=== PATIENT | female | born 1940 | race Caucasian/White ===

== ENCOUNTER 2016-11-14 16:02 | Emergency (ER) | payer MEDICARE, OTHER ==
--- NOTE | 2016-11-14 18:45 | DIAGNOSTIC IMAGING REPORT ---
PROCEDURE: CT ABDOMEN/PELVIS W/O CONTRAST INDICATION: ABDOMINAL PAIN, initial encounter TECHNIQUE: Noncontrast axial images were obtained of the entire abdomen and pelvis with sagittal and coronal reformations. COMPARISON: None. FINDINGS: ABDOMEN: Lung base are clear. Heart size is normal. 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 8 mm hepatic cyst. Gallstones present. 1.4 cm left adrenal mass measuring -9 HU consistent with adenoma. Pancreas and spleen are normal. 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 There is a linear calcification through the lumen of the distal aorta which may represent calcified thrombus versus dissection. Mild descending colon diverticulosis. 2 cm fat containing supraumbilical ventral hernia just right of midline. PELVIS: Short segment inflammatory changes of the proximal sigmoid colon with several diverticula consistent with diverticulitis. No evidence of an abscess or free air. Normal appendix. Uterine atrophy. Normal bladder. Mild to moderate degenerative changes of the spine. IMPRESSION: 1. Proximal sigmoid colon diverticulitis without abscess or free air 2. 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 3.1 cm infrarenal abdominal aortic aneurysm 4. Cholelithiasis 5. Left renal atrophy/hypoplasia 6. Results discussed Dr. Leal All CT scans at this facility use dose modulation, iterative reconstruction, and/or weight-based dosing when appropriate to reduce radiation dose to as low as reasonably achievable.
--- NOTE | 2016-11-14 20:38 | ED NURSING NOTES ---
Clinical Report - Nurses [facility] [address] [place] [address] 11/14/2016 16:05 Patient: AMIRA LINDER TRIAGE Acuity: LEVEL 3. Chief Complaint: (RLQ pain). Alert. No acute distress. ODIN COMA SCORE: [place] Coma Scale: 14- eyes open spontaneously (4); best verbal response- disoriented (4); best motor response- obeys commands (6). --16:25 Margarita Wade R.N. 16:18 11/14/16. BP: 181/78. HR: 67. RR: 16. O2 saturation: 98% on room air. Temp: 98.4 F (oral). Pain level now: 07/20. --16:25 Margarita Wade R.N. Weight: 65.3 kg stated. Height/Length: 64 inches Per Patient. BMI: 24.7. --16:29 Lacie Christianson R.N. Medications Metoprolol Succinate ER Oral. --16:24 Margarita Wade R.N. AmLODIPine Besylate Oral. --16:26 Lacie Christianson R.N. Aspirin Oral. --16:26 Lacie Christianson R.N. Allergies CONTRAST DYE. --16:26 Lacie Christianson R.N. Medication/allergy information source: the patient. --16:25 Margarita Wade R.N. Medication/allergy information source: the patient. --16:30 Lacie Christianson R.N. History Arrived by private vehicle, and accompanied by family. Onset. (2 days ago). ( Pt reports urinary frequency and RLQ pain..). 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 NUTRITIONAL RISK ASSESSMENT: The nutritional risk assessment revealed no deficiencies. FUNCTIONAL ASSESSMENT: Functional assessment: no impairments noted. LEARNING NEEDS ASSESSMENT: The learning needs assessment revealed no barriers. FALL RISK ASSESSMENT: Fall risk assessment completed. Risk factors identified include patient age greater than 65 years. Fall interventions initiated. Side rails up x1. Brakes on Bed in low position. Call light in reach of patient. SKIN INTEGRITY ASSESSMENT: Skin integrity risk assessment completed. No skin integrity risk identified. --16:25 Margarita Wade R.N. SOCIAL HX: Former smoker, end date 1995. Occasional alcohol use. History of heavy drug use: marijuana. --16:30 Lacie Christianson R.N. PROBLEMS: Lung Cancer. Aortic Aneurysm. Hypertension. --16:28 Lacie Christianson R.N. ADDITIONAL SURGERIES: Aortic surgery. Lung Surgery. --16:28 Lacie Christianson R.N. Interventions ID band on patient. To treatment room. --16:25 Margarita Wade R.N. PHYSICAL ASSESSMENT 16:30 11/14/16. Ambulatory to room. GENERAL / NEURO / PSYCH: Alert. Appears in no acute distress. RESPIRATORY: Respirations not labored. CVS: Capillary refill less than 2 seconds. GI / : Abdomen soft and nontender. EXTREMITIES: Sensation intact in extremities. BACK: ROM of neck and back within normal limits. --16:30 Lacie Christianson R.N. NURSING PROGRESS NOTES Patient gowned. Reassurance given. Two patient identifiers checked. Call light placed in reach. Side rails up x 1. Bed placed in lowest position. Brakes of bed on. Patient ready for evaluation- chart flagged and ED physician and BOTTOM PRESSER notified. --16:18 Margarita Wade R.N. late entry - 16:20. Checked patient name and birthdate: patient confirmed. Instructions provided to collect clean catch urine and patient verbalized understanding. Clean catch urine collected with return of yellow-colored clear urine; sample sent to lab for urinalysis. Specimen labeled in the presence of the patient. --17:23 Lacie Christianson R.N. 17:37 11/14/2016 Site #1 started via IV in the left antecubital space with an 20g angiocath, with aseptic technique and good blood return; one attempt. Blood drawn: rainbow set. Labeled in the presence of the patient and sent to the lab. --17:47 Lacie Christianson R.N. 17:47 11/14/2016 Started IV Fluids IV NS (Saline); at 250 mL/hr over 4 hour(s) via site #1 via IV pump. Allergies verified and confirmed 5 rights. IV patency established. IV site checked: no pain, redness, or swelling. IV flushed thoroughly pre- and post-medication administration. --17:48 Lacie Christianson R.N. 17:48 11/14/2016 Dilaudid (HYDROmorphone HCl PF) IVP 0.5 mg given over 1 minute(s) via site #1. Allergies verified, confirmed 5 rights and sedative warning given to the patient. IV patency established. IV site checked: no pain, redness, or swelling. IV flushed thoroughly pre- and post-medication administration. IVP given by RN. --17:48 Lacie Christianson R.N. 17:48 11/14/2016 Zofran (Ondansetron HCl) IVP 4 mg given over 1 minute(s) via site #1. Allergies verified and confirmed 5 rights. IV patency established. IV site checked: no pain, redness, or swelling. IV flushed thoroughly pre- and post-medication administration. IVP given by RN. --17:48 Lacie Christianson R.N. 18:15 11/14/2016 Dilaudid IVP Response: no adverse reaction pain is gone now. Symptoms have improved the patient feels better. --18:15 Lacie Christianson R.N. 18:15 11/14/2016 Zofran IVP Response: no adverse reaction symptoms have improved the patient feels better. --18:15 Lacie Christianson R.N. 18:16 11/14/16. Patient transported to [place] by stretcher with tech. --18:16 Lacie Christianson R.N. 18:26 11/14/16. Patient returned from CT by stretcher with tech. --18:26 Lacie Christianson R.N. 19:05 11/14/16. Care transferred and report given (SÁNCHEZ Quezada). --19:05 Lacie Christianson R.N. 19:30 11/14/2016 Started 500 mg of Levaquin (Levofloxacin) IVPB in bag #1 100 mL; at 100 mL/hr over 1 hour(s) via site #1; Allergies verified and confirmed 5 rights. IV patency established. IV site checked: no pain, redness, or swelling. IV flushed thoroughly pre- and post-medication administration. --19:30 Damien Mike R.N. 19:31 11/14/2016 Started 500 mg of Flagyl (MetroNIDAZOLE in NaCl) IVPB in bag #1 100 mL; at 100 mL/hr over 1 hour(s) via site #1 via IV pump. Allergies verified and confirmed 5 rights. IV patency established. IV site checked: no pain, redness, or swelling. IV flushed thoroughly pre- and post-medication administration. --19:31 Damien Mike R.N. 20:34 11/14/2016 Zofran (Ondansetron HCl) IVP 4 mg given. via site #1. Allergies verified and confirmed 5 rights. IV patency established. IV site checked: no pain, redness, or swelling. IV flushed thoroughly pre- and post-medication administration. --20:34 Damien Mike R.N. 20:35 11/14/2016 Site #1 removed upon discharge. Pressure dressing applied. --20:35 Damien Mike R.N. 20:37 11/14/2016 IV Fluids IV NS Discontinued: bag #1 completed upon discharge. Total amount infused: 1000 mL. IV patency established. IV site checked: no pain, redness, or swelling. IV flushed thoroughly. --20:37 Damien Mike R.N. DISPOSITION / DISCHARGE Departure time: 2032. Condition at departure: improved. No learning barriers present. Discharge instructions provided and reviewed with the patient. Reviewed warnings. Reviewed medication(s). Treatments reviewed. Reviewed diet. Activity restrictions reviewed. Patient verbalized understanding. Written instructions provided in Thai. The patient was discharged by the physician. She was discharged home and unaccompanied at time of discharge. She left the Emergency Department ambulatory and via private vehicle. Patient driving. FALL RISK ASSESSMENT: Fall risk assessment completed. No fall risk identified. --20:36 Damien Mike R.N. 20:35 11/14/16. BP: 168/88. HR: 68. RR: 18. O2 saturation: 98%. Temp: 98 F. Pain level now 3/10. --20:36 Damien Mike R.N. Locked/Released at 11/14/2016 20:37 by Damien Mike R.N.
--- NOTE | 2016-11-14 20:38 | ED ORDER SUMMARY ---
..... Patient: AMIRA LINDER OrderSheet [facility] VisitID: [id number] [place] [address] 76y, F Registration Date/Time: 11/14/2016 ORDER SHEET Weight: 65.3 kg (stated) Allergies: CONTRAST DYE GENERAL ORDERS: UA-Culture if indicated Urgent (17:14 11/14/2016 MWinterer R.N. per protocol) (Ack 17:21 TBergley) (17:22 MWinterer R.N.) CT Abd/Pel w Cont (No) (pending) Urgent (17:30 11/14/2016 Maddie STATON) (Cancelled: [id number] Maddie STATON) Cardiac Panel Stat (17:31 11/14/2016 Maddie STATON) (Ack 17:35 TBergley) (17:36 MWinterer R.N.) Amylase Urgent (17:31 11/14/2016 Maddie STATON) (Ack 17:35 TBergley) (17:36 MWinterer R.N.) Lipase Urgent (17:31 11/14/2016 Maddie STATON) (Ack 17:35 TBergley) (17:36 MWinterer R.N.) CT Abd/Pel wo Cont Urgent (17:33 11/14/2016 Maddie STATON) (Ack 17:35 TBergley) (18:26 MWinterer R.N.) MEDICATION ORDERS: IV FLUIDS: IV NS : initial bolus none -, then 250 mL/hr for 4h (NOW); Routine (17:32 11/14/2016 Maddie STATON) (Ack 17:36 MWinterer R.N.) (17:48 MWinterer R.N.) Dilaudid IV 0.5 mg (NOW) (17:32 11/14/2016 Maddie STATON) (Ack 17:36 MWinterer R.N.) (17:48 MWinterer R.N.) Zofran IV 4 mg (NOW) (17:32 11/14/2016 Maddie STATON) (Ack 17:36 MWinterer R.N.) (17:48 MWinterer R.N.) Flagyl IV 500 mg/100mL (NOW) (18:54 11/14/2016 Maddie STATON) (19:31 Sidney Brown) Levaquin IV 500 mg/100mL (NOW) (18:54 11/14/2016 Maddie STATON) (19:30 Sidney Brown) Zofran IV 4 mg (just prior to discharge home) (19:37 11/14/2016 Maddie STATON) (20:34 Sidney Brown) ORDER SHEET NOTES: [Electronically signed by Damien Mike R.N. (20:37 11/14/2016)] [Electronically locked/signed by Damien Mike R.N. (:37 11/14/2016)]
--- NOTE | 2016-11-14 20:38 | ED CLINICAL REPORT ---
Clinical Report - Physicians/Mid Levels [facility] [address] [place] [address] 11/14/2016 16:05 Patient: AMIRA LINDER Time Seen: 16:35 Nov 14 2016. Arrived- By private vehicle. Historian- patient. CPT: ER phys charges level 4 (#[id number]). HISTORY OF PRESENT ILLNESS Chief Complaint: ABDOMINAL PAIN. At its maximum, severity described as moderate. When seen in the E.D., severity described as moderate. Modifying factors- worsened by movement. Relieved by rest. It is described as "pain", sharp and well localized and it is described as located in the left lower quadrant. 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 The patient has had nausea and loss of appetite. No vomiting or diarrhea. No recent travel. Similar symptoms previously: Once, milder. Diagnosis: unknown. Recent medical care: Not recently seen/assessed. REVIEW OF SYSTEMS The patient has had constipation. No black stools, hematemesis, difficulty with urination, pain with urination or urinary frequency. No fever, headache, sore throat, blurred vision or chest pain. No difficulty breathing, cough, joint pain, skin rash or chills. No back pain. All systems otherwise negative, except as recorded above. PAST HISTORY Lung Cancer. Aortic Aneurysm. Hypertension. Aortic surgery. Lung Surgery. Medications: Aspirin Oral. AmLODIPine Besylate Oral. Metoprolol Succinate ER Oral. Allergies: CONTRAST DYE. SOCIAL HISTORY Former smoker. Alcohol use. History of drug use: marijuana. ADDITIONAL NOTES The nursing notes have been reviewed. PHYSICAL EXAM Vital Signs: 11/14/2016 16:18 BP: 181/78. HR: 67. RR: 16. O2 saturation: 98%. Temp: 98.4 F. Pain level now: 10/10. Appearance: Alert. Appears to be in pain. Patient in moderate distress. Eyes: Pupils equal, round and reactive to light. Eyes normal inspection. ENT: Ears normal. Nose normal. Pharynx normal. Neck: Normal inspection. Neck supple. CVS: Normal heart rate and rhythm. Heart sounds normal. Pulses normal. Respiratory: No respiratory distress. Breath sounds normal. Chest nontender. Abdomen: Moderate tenderness in the left side of the abdomen and left lower quadrant with guarding present. Abnormal bowel sounds: diminished. No mass. Back: Normal inspection. Skin: Skin warm. Normal skin color. No rash. Extremities: Extremities exhibit normal ROM. No lower extremity edema. Neuro: Oriented X 3. No motor deficit. No sensory deficit. Reflexes normal. LABS, X-RAYS, AND EKG Abdominal CT: There is evidence of diverticulitis (Sigmoid). No inflammatory phlegmon, focal abscess or perforation with free air. Laboratory Tests: UA-Culture if indicated: (JAYDON: 11/14/2016 16:10) ( Mscvd 11/14/2016 17:35) Final results Test Result Flag Units (Reference) URINE COLOR YELLOW URINE APPEARANCE CLEAR URINE GLUCOSE NEGATIVE (NEGATIVE) URINE BILIRUBIN NEGATIVE (NEGATIVE) URINE KETONE NEGATIVE (NEGATIVE) URINE SPECIFIC GRAVITY 1.010 (1.010-1.030) URINE PH 7.0 (5.0-8.0) URINE PROTEIN NEGATIVE (NEGATIVE) URINE UROBILINOGEN 0.2 EU/dL (0.2-1.0) URINE NITRITE NEGATIVE (NEGATIVE) URINE BLOOD NEGATIVE (NEGATIVE) URINE LEUK ESTERASE TRACE (NEGATIVE) URINE RBC 0-1 rbc/hpf (0-1) URINE WBC 1-3 wbc/hpf (0-1) URINE EPITHELIAL CELLS 1-3 EPI/hpf (0-5) URINE BACTERIA NONE SEEN (NONE SEEN) URINE COMMENT CULTURE INDICATED URINE CULTURES ARE SET-UP BASED ON THE FOLLOWING CRITERIA:POSITIVE NITRITEPOSITIVE LEUKOCYTE ESTERASEGREATER THAN 10 WHITE BLOOD CELLSMODERATE (2+) OR GREATER BACTERIA CBC w Diff: (JAYDON: 11/14/2016 17:30) ( [facility] [place] 17:55) Final results Test Result Flag Units (Reference) WHITE BLOOD COUNT 11.3 K/uL (4.5-11.5) RED BLOOD COUNT 4.33 M/uL (4.00-5.20) HEMOGLOBIN 13.1 gm/dL (12.0-16.0) HEMATOCRIT 39.0 % (36.0-46.0) MEAN CELL VOLUME 90 fL (80-100) MEAN CORPUSCULAR HGB 30 pg (26-34) MEAN CORPUSCULAR HGB CONC 34 g/dL (31-37) RED CELL DISTRIBUTION WIDTH 13.5 % (11.6-14.8) PLATELET COUNT 254 K/uL (150-400) NEUTROPHIL % 83.7 H % (50-75) LYMPH % 9.4 L % (25-40) MONO % 6.5 % (3-14) EOSINOPHIL % 0.3 % (0-4) BASOPHIL % 0.1 % (0-2) CHEM 13 PANEL: (JAYDON: 11/14/2016 17:30) ( MsgRcvd 11/14/2016 17:59) Final results Test Result Flag Units (Reference) GLUCOSE 113 H mg/dL (70-110) BUN 15 mg/dL (7-18) CREATININE 1.2 mg/dL (0.6-1.3) Estimated GFR 46.30 mL/min Estimated GFR- 56.11 mL/min Note: Persistent reduction over 3 months in eGFR<60 mL/min/1.73 m2 defines CKD. Patients with eGFR values>=60 mL/min/1.73 m2 may also have CKD if evidence ofpersistent proteinuria. Additional information may be foundat www.kidney.org. SODIUM 140 mmol/L (136-145) POTASSIUM 3.7 mmol/L (3.5-5.1) CHLORIDE 102 mmol/L (98-107) CARBON DIOXIDE 26 mmol/L (21-32) CALCIUM 9.1 mg/dL (8.5-10.1) TOTAL PROTEIN 7.0 g/dL (6.4-8.2) ALBUMIN 3.8 g/dL (3.3-5.0) BILIRUBIN, TOTAL 0.6 mg/dL (0.0-1.0) ALKALINE PHOSPHATASE 72 U/L (46-116) AST (SGOT) 19 U/L (15-37) ALT (SGPT) 33 U/L (12-78) CPK 67 U/L (24-260) MAGNESIUM 2.1 mg/dL (1.8-2.4) LIPASE 149 U/L (73-393) AMYLASE 62 U/L (25-115) TROPONIN I <0.05 L ng/mL (0.00-1.5) TROPONIN REFERENCE RANGE:<0.1 NEGATIVE0.1-1.5 INDETERMINANT>1.5 POSITIVE Culture, Urine: (JAYDON: 11/14/2016 16:10) ( MsgRcvd 11/16/2016 11:49) Final results Test Result Flag Units (Reference) CULTURE, URINE DATE: 11/16/16 NO SIGNIFICANT ISOLATION: NO SIGNIFICANT ISOLATION PRELIM REPORT: FINAL REPORT . PROGRESS AND PROCEDURES Course of Care: IV NS Dilaudid 0.5 mg IV times 2 Zofran 4 mg IV times 2. Patient is stable. Symptoms better. Levaquin 500 mg IV Flagyl 500 mg IV. Patient/family counseled. Disposition: Discharged. Condition: stable. CLINICAL IMPRESSION Acute diverticulitis of the colon. No perforation, bleeding, abscess, peritonitis or obstruction. INSTRUCTIONS Take clear liquids only (frequent sips) for the next 24 hours until better. Advance diet as tolerated. Warnings: Further evaluation is necessary. SEDATIVE MEDICATION: You were given sedative medication during your visit. Do not drive or operate dangerous machinery. GENERAL WARNINGS: Return or contact your physician immediately if your condition worsens or changes unexpectedly, if not improving as expected, or if other problems arise. Your Current Medications: CONTINUE TAKING THE FOLLOWING MEDICATIONS: AmLODIPine Besylate Oral. Aspirin Oral. Metoprolol Succinate ER Oral. Prescription Medications: Flagyl 500 mg: Take 1 tablet orally every 12 hours for 10 days. No refill. Substitution is permissible Levaquin 500 mg: take 1 tab orally every day for 10 days. No refills. Oxycodone/APAP 5 mg/325 mg: take 1 tablet orally every 4 hours as needed for pain. Dispense twenty (20). No refill. Follow-up: Follow up with your doctor in three days. Call for the next available appointment. Understanding of the discharge instructions verbalized by patient and family. (Electronically signed by Harshal Leal MD 11/17/2016 23:43)
--- NOTE | 2016-11-14 20:38 | ED ORDER SUMMARY ---
..... Patient: AMIRA LNIDER OrderSheet [facility] VisitID: [id number] [place] [address] 76y, F Registration Date/Time: 11/14/2016 ORDER SHEET Weight: 65.3 kg (stated) Allergies: CONTRAST DYE GENERAL ORDERS: UA-Culture if indicated Urgent (17:14 11/14/2016 MWinterer R.N. per protocol) (Ack 17:21 TBergley) (17:22 MWinterer R.N.) CT Abd/Pel w Cont (No) (pending) Urgent (17:30 11/14/2016 Maddie STATON) (Cancelled: [id number] Maddie STATON) Cardiac Panel Stat (17:31 11/14/2016 Maddie STATON) (Ack 17:35 TBergley) (17:36 MWinterer R.N.) Amylase Urgent (17:31 11/14/2016 Maddie STATON) (Ack 17:35 TBergley) (17:36 MWinterer R.N.) Lipase Urgent (17:31 11/14/2016 Maddie STATON) (Ack 17:35 TBergley) (17:36 MWinterer R.N.) CT Abd/Pel wo Cont Urgent (17:33 11/14/2016 Maddie STATON) (Ack 17:35 TBergley) (18:26 MWinterer R.N.) MEDICATION ORDERS: IV FLUIDS: IV NS : initial bolus none -, then 250 mL/hr for 4h (NOW); Routine (17:32 11/14/2016 Maddie STATON) (Ack 17:36 MWinterer R.N.) (17:48 MWinterer R.N.) Dilaudid IV 0.5 mg (NOW) (17:32 11/14/2016 Maddie STATON) (Ack 17:36 MWinterer R.N.) (17:48 MWinterer R.N.) Zofran IV 4 mg (NOW) (17:32 11/14/2016 Maddie STATON) (Ack 17:36 MWinterer R.N.) (17:48 MWinterer R.N.) Flagyl IV 500 mg/100mL (NOW) (18:54 11/14/2016 Maddie STATON) (19:31 Sidney Brown) Levaquin IV 500 mg/100mL (NOW) (18:54 11/14/2016 Maddie STATON) (19:30 Sidney Brown) Zofran IV 4 mg (just prior to discharge home) (19:37 11/14/2016 Maddie STATON) (20:34 Sidney Brown) ORDER SHEET NOTES: [Electronically signed by Damien Mike R.N. (20:37 11/14/2016)] [Electronically locked/signed by Damien Mike R.N. (:37 11/14/2016)]
--- NOTE | 2016-11-14 20:38 | ED NURSING NOTES ---
Clinical Report - Nurses [facility] [address] [place] [address] 11/14/2016 16:05 Patient: MAIRA LINDER TRIAGE Acuity: LEVEL 3. Chief Complaint: (RLQ pain). Alert. No acute distress. ODIN COMA SCORE: Toney Coma Scale: 14- eyes open spontaneously (4); best verbal response- disoriented (4); best motor response- obeys commands (6). --16:25 Margarita Wade R.N. 16:18 11/14/16. BP: 181/78. HR: 67. RR: 16. O2 saturation: 98% on room air. Temp: 98.4 F (oral). Pain level now: 07/20. --16:25 Margarita Wade R.N. Weight: 65.3 kg stated. Height/Length: 64 inches Per Patient. BMI: 24.7. --16:29 Lacie Christianson R.N. Medications Metoprolol Succinate ER Oral. --16:24 Margarita Wade R.N. AmLODIPine Besylate Oral. --16:26 Lacie Christianson R.N. Aspirin Oral. --16:26 Lacie Christianson R.N. Allergies CONTRAST DYE. --16:26 Lacie Christianson R.N. Medication/allergy information source: the patient. --16:25 Margarita Wade R.N. Medication/allergy information source: the patient. --16:30 Lacie Christianson R.N. History Arrived by private vehicle, and accompanied by family. Onset. (2 days ago). ( Pt reports urinary frequency and RLQ pain..). Treatment [employer]: Recently seen in a clinic; seen for similar symptoms. NUTRITIONAL RISK ASSESSMENT: The nutritional risk assessment revealed no deficiencies. FUNCTIONAL ASSESSMENT: Functional assessment: no impairments noted. LEARNING NEEDS ASSESSMENT: The learning needs assessment revealed no barriers. FALL RISK ASSESSMENT: Fall risk assessment completed. Risk factors identified include patient age greater than 65 years. Fall interventions initiated. Side rails up x1. Brakes on Bed in low position. Call light in reach of patient. SKIN INTEGRITY ASSESSMENT: Skin integrity risk assessment completed. No skin integrity risk identified. --16:25 Margarita Wade R.N. SOCIAL HX: Former smoker, end date 1995. Occasional alcohol use. History of heavy drug use: marijuana. --16:30 Lacie Christianson R.N. PROBLEMS: Lung Cancer. Aortic Aneurysm. Hypertension. --16:28 Lacie Christianson R.N. ADDITIONAL SURGERIES: Aortic surgery. Lung Surgery. --16:28 Lacie Christianson R.N. Interventions ID band on patient. To treatment room. --16:25 Margarita Wade R.N. PHYSICAL ASSESSMENT 16:30 11/14/16. Ambulatory to room. GENERAL / NEURO / PSYCH: Alert. Appears in no acute distress. RESPIRATORY: Respirations not labored. CVS: Capillary refill less than 2 seconds. GI / : Abdomen soft and nontender. EXTREMITIES: Sensation intact in extremities. BACK: ROM of neck and back within normal limits. --16:30 Lacie Christianson R.N. NURSING PROGRESS NOTES Patient gowned. Reassurance given. Two patient identifiers checked. Call light placed in reach. Side rails up x 1. Bed placed in lowest position. Brakes of bed on. Patient ready for evaluation- chart flagged and ED physician and LAB ASST notified. --16:18 Margarita Wade R.N. late entry - 16:20. Checked patient name and birthdate: patient confirmed. Instructions provided to collect clean catch urine and patient verbalized understanding. Clean catch urine collected with return of yellow-colored clear urine; sample sent to lab for urinalysis. Specimen labeled in the presence of the patient. --17:23 Lacie Christianson R.N. 17:37 11/14/2016 Site #1 started via IV in the left antecubital space with an 20g angiocath, with aseptic technique and good blood return; one attempt. Blood drawn: rainbow set. Labeled in the presence of the patient and sent to the lab. --17:47 Lacie Christianson R.N. 17:47 11/14/2016 Started IV Fluids IV NS (Saline); at 250 mL/hr over 4 hour(s) via site #1 via IV pump. Allergies verified and confirmed 5 rights. IV patency established. IV site checked: no pain, redness, or swelling. IV flushed thoroughly pre- and post-medication administration. --17:48 Lacie Christianson R.N. 17:48 11/14/2016 Dilaudid (HYDROmorphone HCl PF) IVP 0.5 mg given over 1 minute(s) via site #1. Allergies verified, confirmed 5 rights and sedative warning given to the patient. IV patency established. IV site checked: no pain, redness, or swelling. IV flushed thoroughly pre- and post-medication administration. IVP given by RN. --17:48 Lacie Christianson R.N. 17:48 11/14/2016 Zofran (Ondansetron HCl) IVP 4 mg given over 1 minute(s) via site #1. Allergies verified and confirmed 5 rights. IV patency established. IV site checked: no pain, redness, or swelling. IV flushed thoroughly pre- and post-medication administration. IVP given by RN. --17:48 Lacie Christianson R.N. 18:15 11/14/2016 Dilaudid IVP Response: no adverse reaction pain is gone now. Symptoms have improved the patient feels better. --18:15 Lacie Christianson R.N. 18:15 11/14/2016 Zofran IVP Response: no adverse reaction symptoms have improved the patient feels better. --18:15 Lacie Christianson R.N. 18:16 11/14/16. Patient transported to [place] by stretcher with tech. --18:16 Lacie Christianson R.N. 18:26 11/14/16. Patient returned from CT by stretcher with tech. --18:26 Lacie Christianson R.N. 19:05 11/14/16. Care transferred and report given (SÁNCHEZ Quezada). --19:05 Lacie Christianson R.N. 19:30 11/14/2016 Started 500 mg of Levaquin (Levofloxacin) IVPB in bag #1 100 mL; at 100 mL/hr over 1 hour(s) via site #1; Allergies verified and confirmed 5 rights. IV patency established. IV site checked: no pain, redness, or swelling. IV flushed thoroughly pre- and post-medication administration. --19:30 Damien Mike R.N. 19:31 11/14/2016 Started 500 mg of Flagyl (MetroNIDAZOLE in NaCl) IVPB in bag #1 100 mL; at 100 mL/hr over 1 hour(s) via site #1 via IV pump. Allergies verified and confirmed 5 rights. IV patency established. IV site checked: no pain, redness, or swelling. IV flushed thoroughly pre- and post-medication administration. --19:31 Damien Mike R.N. 20:34 11/14/2016 Zofran (Ondansetron HCl) IVP 4 mg given. via site #1. Allergies verified and confirmed 5 rights. IV patency established. IV site checked: no pain, redness, or swelling. IV flushed thoroughly pre- and post-medication administration. --20:34 Damien Mike R.N. 20:35 11/14/2016 Site #1 removed upon discharge. Pressure dressing applied. --20:35 Damien Mike R.N. 20:37 11/14/2016 IV Fluids IV NS Discontinued: bag #1 completed upon discharge. Total amount infused: 1000 mL. IV patency established. IV site checked: no pain, redness, or swelling. IV flushed thoroughly. --20:37 Damien Mike R.N. DISPOSITION / DISCHARGE Departure time: 2032. Condition at departure: improved. No learning barriers present. Discharge instructions provided and reviewed with the patient. Reviewed warnings. Reviewed medication(s). Treatments reviewed. Reviewed diet. Activity restrictions reviewed. Patient verbalized understanding. Written instructions provided in Latvian. The patient was discharged by the physician. She was discharged home and unaccompanied at time of discharge. She left the Emergency Department ambulatory and via private vehicle. Patient driving. FALL RISK ASSESSMENT: Fall risk assessment completed. No fall risk identified. --20:36 Damien Mike R.N. 20:35 11/14/16. BP: 168/88. HR: 68. RR: 18. O2 saturation: 98%. Temp: 98 F. Pain level now 3/10. --20:36 Damien Mike R.N. Locked/Released at 11/14/2016 20:37 by Damien Mike R.N.
--- NOTE | 2016-11-17 23:43 | ED MED RECONCILIATION SUMMARY ---
Patient: AMIRA LINDER Medication Reconciliation Report [facility] VisitID: [id number] [address] [place] [address] 76y, F Registration Date/Time: 11/14/2016 Weight: 65.3 kg Height/Length: 64 in. BMI: 24.7 ALLERGIES: CONTRAST DYE The patient's Home Medications are listed below: CONTINUE TAKING THE FOLLOWING MEDICATIONS: AmLODIPine Besylate Oral Aspirin Oral Metoprolol Succinate ER Oral The source(s) of the original Home Medication information: patient The following Medications were given to the patient in the Emergency Department: IV NS IV Fluids bolus 0, then 250 mL/hr, administered: 11/14/2016 5:47:00 PM Dilaudid [IVP] IVP 0.5 mg, administered: 11/14/2016 5:48:00 PM Zofran [IVP] IVP 4 mg, administered: 11/14/2016 5:48:00 PM Levaquin [IVPB] IVPB bolus 0, then 500 mg 100 mL/hr, administered: 11/14/2016 7:30:00 PM Flagyl [IVPB] IVPB bolus 0, then 500 mg 100 mL/hr, administered: 11/14/2016 7:31:00 PM Zofran [IVP] IVP 4 mg, administered: 11/14/2016 8:34:00 PM The following Medications were prescribed to the patient: Flagyl 500 mg: Take 1 tablet orally every 12 hours for 10 days. No refill. Substitution is permissible -- Harshal Leal MD Levaquin 500 mg: take 1 tab orally every day for 10 days. No refills. -- Harshal Leal MD Oxycodone/APAP 5 mg/325 mg: take 1 tablet orally every 4 hours as needed for pain. Dispense twenty (20). No refill. -- Harshal Leal MD
--- NOTE | 2016-11-17 23:43 | ED MAR SUMMARY ---
..... Medication Administration Record [facility] [address] [place] [address] Patient: AMIRA LINDER Visit ID: [id number] 76y, F Weight: 65.3 kg Height/Length: 64 in BMI: 24.7 ALLERGIES: CONTRAST DYE Start 17:47 11/14/2016 Lacie Christianson R.N., Stop 20:37 11/14/2016 Damien Mike R.N. Medication Administered: IV NS (SALINE), Dose: IV Fluids over 4 hour(s), Rate: 250 mL/hr, Site: #1 left AC. Medication Ordered: IV NS : initial bolus none -, then 250 mL/hr for 4h (NOW); Routine. Given 17:48 11/14/2016 Lacie Christianson R.N. Medication Administered: DILAUDID [IVP] (HYDROMORPHONE HCL PF), Dose: 0.5 mg IVP over 1 minute(s), Site: #1 left AC. Medication Ordered: Dilaudid IV 0.5 mg (NOW). Given 17:48 11/14/2016 Lacie Christianson R.N. Medication Administered: ZOFRAN [IVP] (ONDANSETRON HCL), Dose: 4 mg IVP over 1 minute(s), Site: #1 left AC. Medication Ordered: Zofran IV 4 mg (NOW). Start 19:30 11/14/2016 Damien Mike R.N. Medication Administered: LEVAQUIN [IVPB] (LEVOFLOXACIN), Dose: 500 mg IVPB over 1 hour(s), Rate: 100 mL/hr, Dispensed: 100 mL bag, Site: #1 left AC. Medication Ordered: Levaquin IV 500 mg/100mL (NOW). Start 19:31 11/14/2016 Damien Mike R.N. Medication Administered: FLAGYL [IVPB] (METRONIDAZOLE IN NACL), Dose: 500 mg IVPB over 1 hour(s), Rate: 100 mL/hr, Dispensed: 100 mL bag, Site: #1 left AC. Medication Ordered: Flagyl IV 500 mg/100mL (NOW). Given 20:34 11/14/2016 Damien Mike R.N. Medication Administered: ZOFRAN [IVP] (ONDANSETRON HCL), Dose: 4 mg IVP, Site: #1 left AC. Medication Ordered: Zofran IV 4 mg (just prior to discharge home).
--- NOTE | 2016-11-17 23:43 | ED MED RECONCILIATION SUMMARY ---
Patient: AMIRA LINDER Medication Reconciliation Report [facility] VisitID: [id number] [address] [place] [address] 76y, F Registration Date/Time: 11/14/2016 Weight: 65.3 kg Height/Length: 64 in. BMI: 24.7 ALLERGIES: CONTRAST DYE The patient's Home Medications are listed below: CONTINUE TAKING THE FOLLOWING MEDICATIONS: AmLODIPine Besylate Oral Aspirin Oral Metoprolol Succinate ER Oral The source(s) of the original Home Medication information: patient The following Medications were given to the patient in the Emergency Department: IV NS IV Fluids bolus 0, then 250 mL/hr, administered: 11/14/2016 5:47:00 PM Dilaudid [IVP] IVP 0.5 mg, administered: 11/14/2016 5:48:00 PM Zofran [IVP] IVP 4 mg, administered: 11/14/2016 5:48:00 PM Levaquin [IVPB] IVPB bolus 0, then 500 mg 100 mL/hr, administered: 11/14/2016 7:30:00 PM Flagyl [IVPB] IVPB bolus 0, then 500 mg 100 mL/hr, administered: 11/14/2016 7:31:00 PM Zofran [IVP] IVP 4 mg, administered: 11/14/2016 8:34:00 PM The following Medications were prescribed to the patient: Flagyl 500 mg: Take 1 tablet orally every 12 hours for 10 days. No refill. Substitution is permissible -- Harshal Leal MD Levaquin 500 mg: take 1 tab orally every day for 10 days. No refills. -- Harshal Leal MD Oxycodone/APAP 5 mg/325 mg: take 1 tablet orally every 4 hours as needed for pain. Dispense twenty (20). No refill. -- Harshal Leal MD
--- NOTE | 2016-11-17 23:43 | ED DISCHARGE INSTRUCTIONS ---
Patient: AMIRA LINDER General Instructions Formerly [facility] VisitID: [id number] [place] [address] 76y, F Registration Date/Time: 11/14/2016 Acute diverticulitis of the colon. No perforation, bleeding, abscess, peritonitis or obstruction. INSTRUCTIONS Take clear liquids only (frequent sips) for the next 24 hours until better. Advance diet as tolerated. Warnings: Further evaluation is necessary. SEDATIVE MEDICATION: You were given sedative medication during your visit. Do not drive or operate dangerous machinery. GENERAL WARNINGS: Return or contact your physician immediately if your condition worsens or changes unexpectedly, if not improving as expected, or if other problems arise. Your Current Medications: CONTINUE TAKING THE FOLLOWING MEDICATIONS: AmLODIPine Besylate Oral. Aspirin Oral. Metoprolol Succinate ER Oral. Prescription Medications: Flagyl 500 mg: Take 1 tablet orally every 12 hours for 10 days. No refill. Substitution is permissible Levaquin 500 mg: take 1 tab orally every day for 10 days. No refills. Oxycodone/APAP 5 mg/325 mg: take 1 tablet orally every 4 hours as needed for pain. Dispense twenty (20). No refill. Follow-up: Follow up with your doctor in three days. Call for the next available appointment. Understanding of the discharge instructions verbalized by patient and family. ADDITIONAL INFORMATION Diverticulitis Some people develop pouches along the wall of the colon as they get older. The pouches,called diverticuli, usually cause no symptoms. If the pouches become blocked, an infection may occur known as diverticulitis. This causes lower abdominal pain and fever. If not treated, it can become a serious condition, causing an abscess to form inside the pouch. The abscess may block the instestinal tract even or rupture, spreading infection throughout the abdomen. When treatment is started early, oral antibiotics alone may be enough to cure diverticulitis. This method is tried first. However, if you do not improve or if your condition worsens while you are trying oral antibiotics, it will be necessary to admit you to the hospital for IV antibiotics. Severe cases may require surgery. Home care The following guidelines will help you care for your diverticulitis at home: During the acute illness, rest and follow a low-fiber diet: Foods to Include: flake cereal, mashed potatoes, pancakes, waffles, pasta, white bread, rice, applesauce, bananas, eggs, meat, fish, poultry, tofu, cooked vegetables. Take antibiotics exactly as directed. Do not miss any doses or stop taking the medication, even if you feel better. Monitor your temperature and report any rising temperature to your doctor. Preventing future attacks Once you have had an episode of diverticulitis, you are at risk of having a recurrence. After you have recovered from this episode, you may be able to reduce your risk by eating a high-fiber diet (2035 gm/day of fiber). This cleans out the colon pouches that already exist and prevent new ones from forming. Foods high in fiber includes fresh fruits and edible peelings, raw or lightly cooked vegetables, whole grain cereals and breads, dried beans and peas, bran. Follow-up care Follow up with your doctor as advised or sooner if you are not improving in the nexttwo days. When to seek medical care Get prompt medical attention if any of the following occur: Fever of 100.4F (38C) or higher, or as directed by your health care provider Repeated vomiting or swelling of the abdomen Weakness, dizziness, light-headedness Increasing abdominal pain that becomes severe or spreads to your back Pain that moves to the right lower abdomen Rectal bleeding (red, black or maroon color of the stools) Unexpected vaginal bleeding Clear Liquid Diet Clear liquids are any liquid that you can see through as well as those that are very easy to digest. This is used while the body is recovering from irritation or infection of the stomach or intestinal tract. It may also be used before special procedures or surgery. This diet is to be used no more than three days. You may include the following items. Adults Adults should drink a total of 23 quarts of liquid per day. It may be easier to drink small frequent servings rather than a few large ones. Liquids can include: Fruit juices.Strained orange juice or lemonade (no pulp), apple, grape and cranberry juice, clear fruit drinks, sports drinks Beverages.Sport drinks, sodas, mineral water (plain or flavored), tea, black coffee, liquid gelatin (add twice the recommended amount of water) Soups.Clear broth, consomm, bouillon Desserts.Plain gelatin, popsicles, fruit juice bars Children Over 2 years old The following liquids are acceptable for children over age 2: Fruit juices.Strained orange juice or lemonade (no pulp), apple, grape and cranberry juice, clear fruit drinks Beverages. Sports drinks, sodas, mineral water (plain or flavored), tea, liquid gelatin (add twice the recommended amount of water) Soups. Clear broth, consomm, bouillon Desserts. Plain gelatin, popsicles, fruit juice bars Children under 2 years old Oral rehydration fluids such are available at drug stores and most grocery stores without a prescription. Metronidazole Oral tablet What is this medicine? METRONIDAZOLE (me troe NI da zole) is an antiinfective. It is used to treat certain kinds of bacterial and protozoal infections. It will not work for colds, flu, or other viral infections. How should I use this medicine? Take this medicine by mouth with a full glass of water. Follow the directions on the prescription label. Take your medicine at regular intervals. Do not take your medicine more often than directed. Take all of your medicine as directed even if you think you are better. Do not skip doses or stop your medicine early. Talk to your real estate closer regarding the use of this medicine in children. Special care may be needed. What side effects may I notice from receiving this medicine? Side effects that you should report to your doctor or health respiratory care practitioner as soon as possible: allergic reactions like skin rash or hives, swelling of the face, lips, or tongue confusion, clumsiness difficulty speaking discolored or sore mouth dizziness fever, infection numbness, tingling, pain or weakness in the hands or feet trouble passing urine or change in the amount of urine redness, blistering, peeling or loosening of the skin, including inside the mouth seizures unusually weak or tired vaginal irritation, dryness, or discharge Side effects that usually do not require medical attention (report to your doctor or health respiratory care practitioner if they continue or are bothersome): diarrhea headache irritability metallic taste nausea stomach pain or cramps trouble sleeping What may interact with this medicine? Do not take this medicine with any of the following medications: alcohol or any product that contains alcohol amprenavir oral solution cisapride disulfiram dofetilide dronedarone paclitaxel injection pimozide ritonavir oral solution sertraline oral solution sulfamethoxazole-trimethoprim injection thioridazine ziprasidone This medicine may also interact with the following medications: cimetidine lithium other medicines that prolong the QT interval (cause an abnormal heart rhythm) phenobarbital phenytoin warfarin What if I miss a dose? If you miss a dose, take it as soon as you can. If it is almost time for your next dose, take only that dose. Do not take double or extra doses. Where should I keep my medicine? Keep out of the reach of children. Store at room temperature below 25 degrees C (77 degrees F). Protect from light. Keep container tightly closed. Throw away any unused medicine after the expiration date. What should I tell my health care provider before I take this medicine? They need to know if you have any of these conditions: anemia or other blood disorders disease of the nervous system fungal or yeast infection if you drink alcohol containing drinks liver disease seizures an unusual or allergic reaction to metronidazole, or other medicines, foods, dyes, or preservatives or trying to get breast-feeding What should I watch for while using this medicine? Tell your doctor or health respiratory care practitioner if your symptoms do not improve or if they get worse. You may get drowsy or dizzy. Do not drive, use machinery, or do anything that needs mental alertness until you know how this medicine affects you. Do not stand or sit up quickly, especially if you are an older patient. This reduces the risk of dizzy or fainting spells. Avoid alcoholic drinks while you are taking this medicine and for three days afterward. Alcohol may make you feel dizzy, sick, or flushed. If you are being treated for a sexually transmitted disease, avoid sexual contact until you have finished your treatment. Your sexual partner may also need treatment. Levofloxacin Oral tablet What is this medicine? LEVOFLOXACIN (venus york) is a quinolone antibiotic. It is used to treat certain kinds of bacterial infections. It will not work for colds, flu, or other viral infections. How should I use this medicine? Take this medicine by mouth with a full glass of water. Follow the directions on the prescription label. This medicine can be taken with or without food. Take your medicine at regular intervals. Do not take your medicine more often than directed. Do not skip doses or stop your medicine early even if you feel better. Do not stop taking except on your doctor's advice. A special MedGuide will be given to you by the pharmacist with each prescription and refill. Be sure to read this information carefully each time. Talk to your real estate closer regarding the use of this medicine in children. While this drug may be prescribed for children as young as 6 months for selected conditions, precautions do apply. What side effects may I notice from receiving this medicine? Side effects that you should report to your doctor or health respiratory care practitioner as soon as possible: -allergic reactions like skin rash or hives, swelling of the face, lips, or tongue -changes in vision -confusion, nightmares or hallucinations -difficulty breathing -irregular heartbeat, chest pain -joint, muscle or tendon pain -pain or difficulty passing urine -persistent headache with or without blurred vision -redness, blistering, peeling or loosening of the skin, including inside the mouth -seizures -unusual pain, numbness, tingling, or weakness -vaginal irritation, discharge Side effects that usually do not require medical attention (report to your doctor or health respiratory care practitioner if they continue or are bothersome): -diarrhea -dry mouth -headache -stomach upset, nausea -trouble sleeping What may interact with this medicine? Do not take this medicine with any of the following medications: - arsenic trioxide - chloroquine - droperidol - medicines for irregular heart rhythm like amiodarone, disopyramide, dofetilide, flecainide, quinidine, procainamide, sotalol - some medicines for depression or mental problems like phenothiazines, pimozide, and ziprasidone This medicine may also interact with the following medications: - amoxapine -antacids - cisapride - dairy products - didanosine (ddI) buffered tablets or powder - haloperidol - multivitamins -NSAIDS, medicines for pain and inflammation, like ibuprofen or naproxen - retinoid products like tretinoin or isotretinoin - risperidone - some other antibiotics like clarithromycin or erythromycin - sucralfate - theophylline - warfarin What if I miss a dose? If you miss a dose, take it as soon as you remember. If it is almost time for your next dose, take only that dose. Do not take double or extra doses. Where should I keep my medicine? Keep out of the reach of children. Store at room temperature between 15 and 30 degrees C (59 and 86 degrees F). Keep in a tightly closed container. Throw away any unused medicine after the expiration date. What should I tell my health care provider before I take this medicine? They need to know if you have any of these conditions: cerebral disease irregular heartbeat kidney disease seizure disorder an unusual or allergic reaction to levofloxacin, other antibiotics or medicines, foods, dyes, or preservatives or trying to get breast-feeding What should I watch for while using this medicine? Tell your doctor or health respiratory care practitioner if your symptoms do not improve or if they get worse. Drink several glasses of water a day and cut down on drinks that contain caffeine. You must not get dehydrated while taking this medicine. You may get drowsy or dizzy. Do not drive, use machinery, or do anything that needs mental alertness until you know how this medicine affects you. Do not sit or stand up quickly, especially if you are an older patient. This reduces the risk of dizzy or fainting spells. This medicine can make you more sensitive to the sun. Keep out of the sun. If you cannot avoid being in the sun, wear protective clothing and use a sunscreen. Do not use sun lamps or tanning beds/booths. Contact your doctor if you get a sunburn. If you are a diabetic monitor your blood glucose carefully. If you get an unusual reading stop taking this medicine and call your doctor right away. Do not treat diarrhea with [id number] products. Contact your doctor if you have diarrhea that lasts more than 2 days or if the diarrhea is severe and watery. Avoid antacids, calcium, iron, and zinc products for 2 hours before and 2 hours after taking a dose of this medicine. Oxycodone Hydrochloride, Acetaminophen Oral tablet What is this medicine? ACETAMINOPHEN; OXYCODONE (a set a JA michael fen; ox i KOE done) is a pain reliever. It is used to treat mild to moderate pain. How should I use this medicine? Take this medicine by mouth with a full glass of water. Follow the directions on the prescription label. Take your medicine at regular intervals. Do not take your medicine more often than directed. Talk to your real estate closer regarding the use of this medicine in children. Special care may be needed. Patients over 65 years old may have a stronger reaction and need a smaller dose. What side effects may I notice from receiving this medicine? Side effects that you should report to your doctor or health respiratory care practitioner as soon as possible: allergic reactions like skin rash, itching or hives, swelling of the face, lips, or tongue breathing difficulties, wheezing confusion light headedness or fainting spells severe stomach pain yellowing of the skin or the whites of the eyes Side effects that usually do not require medical attention (report to your doctor or health respiratory care practitioner if they continue or are bothersome): dizziness drowsiness nausea vomiting What may interact with this medicine? alcohol antihistamines barbiturates like amobarbital, butalbital, butabarbital, methohexital, pentobarbital, phenobarbital, thiopental, and secobarbital benztropine drugs for bladder problems like solifenacin, trospium, oxybutynin, tolterodine, hyoscyamine, and methscopolamine drugs for breathing problems like ipratropium and tiotropium drugs for certain stomach or intestine problems like propantheline, homatropine methylbromide, glycopyrrolate, atropine, belladonna, and dicyclomine general anesthetics like etomidate, ketamine, nitrous oxide, propofol, desflurane, enflurane, halothane, isoflurane, and sevoflurane medicines for depression, anxiety, or psychotic disturbances medicines for sleep muscle relaxants naltrexone narcotic medicines (opiates) for pain phenothiazines like perphenazine, thioridazine, chlorpromazine, mesoridazine, fluphenazine, prochlorperazine, promazine, and trifluoperazine scopolamine tramadol trihexyphenidyl What if I miss a dose? If you miss a dose, take it as soon as you can. If it is almost time for your next dose, take only that dose. Do not take double or extra doses. Where should I keep my medicine? Keep out of the reach of children. This medicine can be abused. Keep your medicine in a safe place to protect it from theft. Do not share this medicine with anyone. Selling or giving away this medicine is dangerous and against the law. Store at room temperature between 20 and 25 degrees C (68 and 77 degrees F). Keep container tightly closed. Protect from light. This medicine may cause accidental overdose and if it is taken by other adults, children, or pets. Flush any unused medicine down the toilet to reduce the chance of harm. Do not use the medicine after the expiration date. What should I tell my health care provider before I take this medicine? They need to know if you have any of these conditions: brain tumor Crohn's disease, inflammatory bowel disease, or ulcerative colitis drink more than 3 alcohol containing drinks per day drug abuse or addiction head injury heart or circulation problems kidney disease or problems going to the bathroom liver disease lung disease, asthma, or breathing problems an unusual or allergic reaction to acetaminophen, oxycodone, other opioid analgesics, other medicines, foods, dyes, or preservatives or trying to get breast-feeding What should I watch for while using this medicine? Tell your doctor or health respiratory care practitioner if your pain does not go away, if it gets worse, or if you have new or a different type of pain. You may develop tolerance to the medicine. Tolerance means that you will need a higher dose of the medication for pain relief. Tolerance is normal and is expected if you take this medicine for a long time. Do not suddenly stop taking your medicine because you may develop a severe reaction. Your body becomes used to the medicine. This does NOT mean you are addicted. Addiction is a behavior related to getting and using a drug for a non-medical reason. If you have pain, you have a medical reason to take pain medicine. Your doctor will tell you how much medicine to take. If your doctor wants you to stop the medicine, the dose will be slowly lowered over time to avoid any side effects. You may get drowsy or dizzy. Do not drive, use machinery, or do anything that needs mental alertness until you know how this medicine affects you. Do not stand or sit up quickly, especially if you are an older patient. This reduces the risk of dizzy or fainting spells. Alcohol may interfere with the effect of this medicine. Avoid alcoholic drinks. There are different types of narcotic medicines (opiates) for pain. If you take more than one type at the same time, you may have more side effects. Give your health care provider a list of all medicines you use. Your doctor will tell you how much medicine to take. Do not take more medicine than directed. Call emergency for help if you have problems breathing. The medicine will cause constipation. Try to have a bowel movement at least every 2 to 3 days. If you do not have a bowel movement for 3 days, call your doctor or health respiratory care practitioner. Do not take Tylenol (acetaminophen) or medicines that have acetaminophen with this medicine. Too much acetaminophen can be very dangerous. Many nonprescription medicines contain acetaminophen. Always read the labels carefully to avoid taking more acetaminophen. You have been given the following additional information: Diverticulitis Diet, Clear Liquid Metronidazole Oral tablet Levofloxacin Oral tablet Oxycodone Hydrochloride, Acetaminophen Oral tablet (Electronically signed by Harshal Leal MD 11/17/2016 23:43)
--- NOTE | 2016-11-17 23:43 | ED MAR SUMMARY ---
..... Medication Administration Record [facility] [address] [place] [address] Patient: AMIRA LINDER Visit ID: [id number] 76y, F Weight: 65.3 kg Height/Length: 64 in BMI: 24.7 ALLERGIES: CONTRAST DYE Start 17:47 11/14/2016 Lacie Christianson R.N., Stop 20:37 11/14/2016 Damien Mike R.N. Medication Administered: IV NS (SALINE), Dose: IV Fluids over 4 hour(s), Rate: 250 mL/hr, Site: #1 left AC. Medication Ordered: IV NS : initial bolus none -, then 250 mL/hr for 4h (NOW); Routine. Given 17:48 11/14/2016 Lacie Christianson R.N. Medication Administered: DILAUDID [IVP] (HYDROMORPHONE HCL PF), Dose: 0.5 mg IVP over 1 minute(s), Site: #1 left AC. Medication Ordered: Dilaudid IV 0.5 mg (NOW). Given 17:48 11/14/2016 Lacie Christianson R.N. Medication Administered: ZOFRAN [IVP] (ONDANSETRON HCL), Dose: 4 mg IVP over 1 minute(s), Site: #1 left AC. Medication Ordered: Zofran IV 4 mg (NOW). Start 19:30 11/14/2016 Damien Mike R.N. Medication Administered: LEVAQUIN [IVPB] (LEVOFLOXACIN), Dose: 500 mg IVPB over 1 hour(s), Rate: 100 mL/hr, Dispensed: 100 mL bag, Site: #1 left AC. Medication Ordered: Levaquin IV 500 mg/100mL (NOW). Start 19:31 11/14/2016 Damien Mike R.N. Medication Administered: FLAGYL [IVPB] (METRONIDAZOLE IN NACL), Dose: 500 mg IVPB over 1 hour(s), Rate: 100 mL/hr, Dispensed: 100 mL bag, Site: #1 left AC. Medication Ordered: Flagyl IV 500 mg/100mL (NOW). Given 20:34 11/14/2016 Damien Mike R.N. Medication Administered: ZOFRAN [IVP] (ONDANSETRON HCL), Dose: 4 mg IVP, Site: #1 left AC. Medication Ordered: Zofran IV 4 mg (just prior to discharge home).
== END 2016-11-14 20:33 | disposition home or self-care (01) ==
LOC: ED SRH 16:02
DX: K57.92 Diverticulitis of intestine, part unspecified, without perforation or abscess without bleeding (principal); I10 Essential (primary) hypertension; Z85.118 Personal history of other malignant neoplasm of bronchus and lung; Z87.891 Personal history of nicotine dependence; Z79.82 Long term (current) use of aspirin; Z91.041 Radiographic dye allergy status
CPT/HCPCS: 90004; 90100; 90469; 90616; 92235; 92530; 92610; 92720; 95059